=== PATIENT | female | born 1990 | race Caucasian/White ===

== ENCOUNTER 2019-02-09 11:07 | Inpatient (IN) | payer OTHER ==
[~2019-02-09] VITALS: Ht 157.5 cm; Wt 71.7 kg
[2019-03-02] MEDS ORDERED: PRENATAL TABLE1 EAC1 PO (11:24)
== END 2019-03-04 13:06 | disposition home or self-care (01) | DRG 768 ==
LOC: LDR 03-02 07:22 → OB/GYN 03-02 07:22
PROVIDERS: ADMIT Obstetrics & Gynecology
PROC: 10E0XZZ Delivery of Products of Conception, External Approach (ICD-10-PCS; principal; 2019-03-02)
PROC: 0DQR0ZZ Repair Anal Sphincter, Open Approach (ICD-10-PCS; 2019-03-02)
PROC: 0W8NXZZ Division of Female Perineum, External Approach (ICD-10-PCS; 2019-03-02)
PROC: 3E033VJ Introduction of Other Hormone into Peripheral Vein, Percutaneous Approach (ICD-10-PCS; 2019-03-02)
PROC: 4A1HXCZ Monitoring of Products of Conception, Cardiac Rate, External Approach (ICD-10-PCS; 2019-03-02)
DX: O70.21 Third degree perineal laceration during delivery, IIIa (principal); Z37.0 Single live birth; Z3A.39 39 weeks gestation of pregnancy

== ENCOUNTER 2022-08-16 13:30 | Inpatient (IN) | payer OTHER ==
[~2022-08-16] VITALS: Ht 157.5 cm; Wt 68.9 kg
[~2022-08-16 13:30] MED LIST: PRENATAL TABLE1 EAC1 PO
== END 2022-08-27 11:54 | disposition home or self-care (01) | DRG 807 ==
LOC: LDR 08-25 12:59 → OB/GYN 08-25 18:05
PROVIDERS: ADMIT Obstetrics & Gynecology Gynecology; ATTEND Obstetrics & Gynecology Gynecology
PROC: 10E0XZZ Delivery of Products of Conception, External Approach (ICD-10-PCS; principal; 2022-08-25)
PROC: 0W8NXZZ Division of Female Perineum, External Approach (ICD-10-PCS; 2022-08-25)
PROC: 4A1HXCZ Monitoring of Products of Conception, Cardiac Rate, External Approach (ICD-10-PCS; 2022-08-25)
DX: O80 Encounter for full-term uncomplicated delivery (principal); Z37.0 Single live birth; Z3A.39 39 weeks gestation of pregnancy; Z20.822 Contact with and (suspected) exposure to COVID-19

== ENCOUNTER 2022-08-22 13:45 | Outpatient (CLI) | payer OTHER | END 2022-08-22 14:52 | disposition home or self-care (01) | LOC: NST 13:45 | PROVIDERS: ATTEND Obstetrics & Gynecology Maternal & Fetal Medicine | DX: Z34.83 Encounter for supervision of other normal pregnancy, third trimester (principal) ==